=== PATIENT | female | born 1980 | race Caucasian/White ===

== ENCOUNTER 2017-05-05 10:00 | Observation (INO) | payer OTHER ==
[~2017-05-05] VITALS: Ht 160 cm; Wt 75.7 kg
[2017-05-05 11:12] LABS: GLUCOMETER DEV NAME(LOC) 4S 8; GLUCOSE,POINT OF CARE 109 MG/DL (70-110)
[2017-05-05 11:14] VITALS: BP 111/73
== END 2017-05-05 12:05 | disposition home or self-care (01) ==
LOC: 4S 10:00
PROVIDERS: ADMIT Obstetrics & Gynecology; ATTEND Obstetrics & Gynecology
DX: O24.410 Gestational diabetes mellitus in pregnancy, diet controlled (principal); O09.513 Supervision of elderly primigravida, third trimester; Z3A.38 38 weeks gestation of pregnancy
CPT/HCPCS: 36415; 59025; 82962; 83036; G0378

== ENCOUNTER 2017-05-15 20:56 | Inpatient (IN) | payer OTHER ==
[~2017-05-15] VITALS: Ht 160 cm; Wt 76.2 kg
[2017-05-15 22:17] LABS: GLUCOMETER DEV NAME(LOC) 4S 8; GLUCOSE,POINT OF CARE 100 MG/DL (70-110)
[2017-05-15] MEDS ORDERED: OXYTOCIN 30 UNITS/LACT RINGERS 500 ML IV ONE (22:33)
[2017-05-15] MEDS ORDERED: RINGERS SOLUTION,LACTATED 1,000 ML IV PRN (22:33)
[2017-05-15] MEDS ORDERED: OXYTOCIN 30 UNITS/LACT RINGERS 500 ML IV PRN (22:33)
[2017-05-15] MEDS ORDERED: FentaNYL CITRATE-PF 100 MCG/2 ML VIAL IVP PRN (22:45)
[2017-05-15] MEDS ORDERED: METOCLOPRAMIDE HCL 5 MG/ML 2 ML VIAL IVP PRN (22:45)
[2017-05-15] MEDS ORDERED: CITRIC ACID/SODIUM CITRATE 30 ML SOLUTION UDCUP PO PRN (22:45)
[2017-05-15] MEDS: RINGERS SOLUTION,LACTATED 1,000 ML IV SCH (23:17)
[2017-05-15 23:23] LABS: BASOPHILS % (AUTO) 0.3 % (0.0-2.0); EOSINOPHILS % (AUTO) 1.6 % (1.0-6.0); HEMATOCRIT 39.4 % (36-46); HEMOGLOBIN 13.7 g/dL (12.0-16.0); LYMPHOCYTES # (AUTO) 2.6 K/uL (1.0-4.8); LYMPHOCYTES % (AUTO) 27.3 % (22.0-44.0); MEAN CORPUSCULAR HEMOGLOBIN 30.8 pg (26.0-34.0); MEAN CORPUSCULAR HGB CONC 34.8 G/dL (31.0-37.0); MEAN CORPUSCULAR VOLUME 89 fL (80-100); MONOCYTES # (AUTO) 0.7 K/uL (0.1-1.0); MONOCYTES % (AUTO) 7.6 % (2.0-9.0); NEUTROPHILS % (AUTO) 63.2 % (40.0-70.0); PLATELET COUNT (AUTO)-OB 166 K/uL (150-450); RED BLOOD CELL COUNT(AUTO) 4.44 MIL/uL (4.00-5.20); RED CELL DISTRIBUTION WIDTH 13.4 % (11.5-14.5)
[2017-05-16] MEDS ORDERED: LIDOCAINE HCL/PF 2% 5 ML VIAL ONE (03:36)
[2017-05-16] MEDS ORDERED: ROPIVACAINE HCL 0.2% 100 ML ED ONE (03:38)
[2017-05-16] MEDS ORDERED: FentaNYL/BUPIV 0.125%/NS/PF 200 ML ED PRN (03:58)
[2017-05-16] MEDS ORDERED: DiphenhydrAMINE HCL 50 MG/ML VIAL IVP PRN (04:00)
[2017-05-16] MEDS ORDERED: ONDANSETRON HCL 4 MG/2 ML VIAL IVP PRN (04:00)
[2017-05-16] MEDS ORDERED: NALBUPHINE HCL 10 MG/ML VIAL IVP PRN (04:00)
[2017-05-16] MEDS: RINGERS SOLUTION,LACTATED 1,000 ML IV SCH (05:08)
[2017-05-16] MEDS ORDERED: METF500T4 PO (07:57)
[2017-05-16] MEDS ORDERED: OXYGEN THERAPY IH SCH (08:00)
[2017-05-16] MEDS ORDERED: RINGERS SOLUTION,LACTATED 1,000 ML IV ONE (10:10)
[2017-05-16] MEDS ORDERED: MEASLES/MUMPS/RUBELLA VACCINE, LIVE 0.5 ML/VIAL SQ ONE (10:15)
[2017-05-16] MEDS ORDERED: LANOLIN 7 GM OINTMENT TP PRN (10:15)
[2017-05-16] MEDS ORDERED: OxyCODONE HCL/ACETAMINOPHEN 5-325 MG TABLET PO PRN ×2 (10:15)
[2017-05-16] MEDS ORDERED: GLYCERIN/WITCH HAZEL LEAF 40 PADS JAR TP PRN (10:15)
[2017-05-16] MEDS ORDERED: BENZOCAINE 20%/MENTHOL 56 GM SPRAY CANISTER TP PRN (10:15)
[2017-05-16] MEDS: IBUPROFEN 600 MG TABLET PO PRN ×2 (13:42→21:10)
[2017-05-16] MEDS ORDERED: MAGNESIUM HYDROXIDE SUSPENSION 30 ML UDCUP PO SCH (21:00)
[2017-05-17] MEDS: IBUPROFEN 600 MG TABLET PO PRN ×2 (02:41→08:51)
[2017-05-17] MEDS ORDERED: IBUP-2071 PO (10:21)
== END 2017-05-17 11:30 | disposition home or self-care (01) | DRG 775 ==
LOC: OBSVTOIN 20:56 → 4S 20:56
PROVIDERS: ADMIT Obstetrics & Gynecology; ATTEND Obstetrics & Gynecology
PROC: 10E0XZZ Delivery of Products of Conception, External Approach (ICD-10-PCS; principal; 2017-05-16)
PROC: 0KQM0ZZ Repair Perineum Muscle, Open Approach (ICD-10-PCS; 2017-05-16)
PROC: 3E0R3BZ Introduction of Anesthetic Agent into Spinal Canal, Percutaneous Approach (ICD-10-PCS; 2017-05-16)
PROC: 00HU33Z Insertion of Infusion Device into Spinal Canal, Percutaneous Approach (ICD-10-PCS; 2017-05-16)
PROC: 3E0234Z Introduction of Serum, Toxoid and Vaccine into Muscle, Percutaneous Approach (ICD-10-PCS; 2017-05-16)
DX: O24.425 Gestational diabetes mellitus in childbirth, controlled by oral hypoglycemic drugs (principal); O71.4 Obstetric high vaginal laceration alone; O42.92 Full-term premature rupture of membranes, unspecified as to length of time between rupture and onset of labor; O76 Abnormality in fetal heart rate and rhythm complicating labor and delivery; Z3A.39 39 weeks gestation of pregnancy; Z37.0 Single live birth; Z79.899 Other long term (current) drug therapy; Z23 Encounter for immunization
CPT/HCPCS: 82962; 86850; 86900; 86901; J2590; J2795; J3490; J7120